=== PATIENT | female | born 1965 | race Caucasian/White ===

== ENCOUNTER 2018-05-14 13:13 | Inpatient (IN) | payer OTHER ==
[~2018-05-14] VITALS: Ht 177.8 cm; Wt 112.9 kg
[2018-05-14 14:10] LABS: ABSOLUTE BASOPHIL COUNT 0 /CUMM (0.0-0.2); ABSOLUTE EOSINOPHIL COUNT 0 /CUMM (0.0-0.7); ABSOLUTE GRANULOCYTE CT 28.4 /CUMM (1.4-6.5); ABSOLUTE LYMPH COUNT 0.6 /CUMM (1.2-3.4); ABSOLUTE MONOCYTE COUNT 0.2 /CUMM (0.10-0.60); BASOPHIL % 0 % (0.0-2.0); EOSINOPHIL % 0 % (0-5); GRANULOCYTE % 97.4 % (42.2-75.2); HEMATOCRIT 35.6 % (37-47); MEAN CORPUSCULAR HGB 24.2 PG (27.0-31.0); MEAN CORPUSCULAR HGB CONC 32.4 G/DL (33.0-37.0); MEAN CORPUSCULAR VOLUME 74.8 FL (81.0-99.0); PLATELET COUNT 508 /CUMM (130-400); RBC DISTRIBUTION WIDTH 16.2 % (11.5-14.5); RED BLOOD CELL CT 4.76 /CUMM (4.20-5.40)
[2018-05-14 14:15] LABS: WHITE BLOOD CELL COUNT 29.2 /CUMM (4.8-10.8)
--- NOTE | 2018-05-14 14:50 | ULTRASOUND REPORT ---
EXAMINATION: US ABDOMEN LIMITED CLINICAL INFORMATION: Right upper quadrant and epigastric pain with nausea and vomiting. COMPARISON: 08/31/2006 TECHNIQUE: Real-time imaging of the right upper quadrant abdominal viscera. FINDINGS: PANCREAS: Very limited evaluation due to overlying bowel gas. Suboptimal visualization. LIVER: The liver is poorly seen due to overlying bowel gas and patient's body habitus. The liver appears slightly enlarged measuring 22 cm. Intrahepatic biliary ducts appear dilated, predominantly centrally but also into the periphery. No focal liver lesions seen. GALLBLADDER: Gallstones were identified. The gallbladder wall was not thickened. The gallbladder is physiologically distended. COMMON BILE DUCT: Dilated measuring 1.3 cm in diameter. RIGHT KIDNEY: Limited visualization. No hydronephrosis. No renal calculi or focal parenchymal lesions. The kidney measures 9.9 cm in maximum dimension. FREE FLUID: None. IMPRESSION: Intrahepatic and extrahepatic biliary dilatation. There are also gallstones present, however the gallbladder is normally distended without inflammatory changes. Although a gallstone was not able to be seen, this does not exclude a distal stone obstructing the biliary system. The patient's body habitus and bowel gas limited visualization. Consider follow-up with MRCP or ERCP as indicated based upon clinical assessment.
--- NOTE | 2018-05-14 15:43 | ED GI/GU/ABDOMINAL COMPLAINT ---
History of Present Illness General Chief Complaint: Nausea, Vomiting, Diarrhea Stated Complaint: NV Source: patient Exam Limitations: no limitations Vital Signs & Intake/Output Vital Signs & Intake/Output ED Intake and Output 05/18 0000 05/17 1200 Intake Total 920 Output Total 350 Balance 570 Intake, IV 800 Intake, Oral 120 Output, Urine 350 Triage Note: BIBA FROM HOME WITH C/O NAUSEA AND ABD PAIN, PT SEEN YESTERDAY FOR THE SAME, "SENT HOME WITH TYLENOL". PT MOANING AND YELLING OUT UPON ARRIVAL. PT MED WITH ZOFRAN IV ENROUTE TO ED FOR C/O NAUSEA. Triage Nurses Notes Reviewed? yes LMP (ages 10-50): unknown ? n Is pt currently ? No Onset: Abrupt Duration: day(s): (3), constant, continues in ED Timing: single episode today Quality/Severity: cramping, stabbing Severity Numbers: 10 Location: right upper quadrant Radiation: no radiation Activities at Onset: none Prior Abdominal Problems: similar symptoms Past Sexual History: Unobtainable at this time Associated Symptoms: abdominal pain, nausea/vomiting HPI: 52-year-old female history of GERD, gallstones, obesity, bronchitis and chronic back pain presents for evaluation of right upper quadrant pain nausea and vomiting. Patient reports she has been having symptoms for the past 2 or 3 days getting worse. The pain is located in the right upper quadrant does not radiate. She describes it as sharp and stabbing. Associated with lots of nausea and vomiting she is not tolerating fluids. Patient was seen in the emergency department overnight and refused to stay for an ultrasound she left to return this morning. She denies any fever chest pain shortness of breath or jaundiced. She has a history of similar symptoms and was supposed to have a cholecystectomy along with intraoperative ERCP and esophageal hernia repair but this has not yet been scheduled. (Keny DELGADO,Jose) Allergies Coded Allergies: metronidazole (From FLAGYL) (Mild, ITCHING 05/16/18) Reconcile Medications Oxycodone HCl 5 MG TABLET 1-2 TAB PO Q4H PRN POSTOP PAIN (Desiree SESAY,Zeyad Oh) Past History Travel History Traveled to [place] past 21 day No Medical History Any Pertinent Medical History? see below for history Respiratory: bronchitis Gastrointestinal: GERD, GALL STONES Musculoskeletal: chronic back pain, osteoarthritis Surgical History Surgical History: non-contributory Psychosocial History What is your primary language Albanian Tobacco Use: Refused to answer Family History Hx Contributory? No (Jose Weston) Review of Systems Review of Systems Constitutional: Reports: no symptoms. EENTM: Reports: no symptoms. Respiratory: Reports: no symptoms. Cardiovascular: Reports: no symptoms. GI: Reports: see HPI, abdominal pain, nausea, vomiting. Genitourinary: Reports: no symptoms. Musculoskeletal: Reports: no symptoms. Skin: Reports: no symptoms. Neurological/Psychological: Reports: no symptoms. Hematologic/Endocrine: Reports: no symptoms. Immunologic/Allergic: Reports: no symptoms. All Other Systems: Reviewed and Negative (Jose Weston) Physical Exam Physical Exam General Appearance: well developed/nourished, alert, awake, moderate distress, obese Head: atraumatic, normal appearance Eyes: Bilateral: normal appearance, PERRL, EOMI. Ears, Nose, Throat, Mouth: moist mucous membrane Neck: normal inspection, supple, full range of motion Respiratory: normal breath sounds, chest non-tender, no respiratory distress, lungs clear Cardiovascular: regular rate/rhythm, normal peripheral pulses Peripheral Pulses: 2+ radial (R), 2+ radial (L) Gastrointestinal: normal bowel sounds, soft, no organomegaly, tenderness (ruq, epigastric ) Back: normal inspection, normal range of motion, no vertebral tenderness Extremities: normal range of motion Neurologic/Psych: no motor/sensory deficits, awake, alert, oriented x 3, normal gait, normal mood/affect Skin: intact, normal color, warm/dry Core Measures ACS in differential dx? No Sepsis Present: No Sepsis Focused Exam Completed? No (Jose Weston) Progress Differential Diagnosis: cholecystitis, gastritis, hepatitis, hernia, kidney stone, pancreatitis, cholangitis cholcystitis choldocholithiasis Plan of Care: Orders Procedure Date/time Status Discharge Patient 05/17 UNK Active Patient is here with severe right upper quadrant pain nausea and vomiting. Symptoms have been getting worse for the past 2 or 3 days. Patient has a history of similar symptoms and is supposed to have a cholecystectomy with intraoperative ERCP but this has not yet been scheduled. She denies any fever. No diarrhea. No chest pain or shortness of breath. Labs were repeated from this morning ultrasound and CT scan ordered. Patient has required multiple doses of IV antiemetics and IV pain meds and is still requiring significant pain Labs show multiple significant abnormalities including elevated alk phos AST ALT T bili 1.8 white blood cell count of 29. Patient was started on Rocephin and Flagyl for empiric treatment of cholangitis. Ultrasound is limited based on body habitus. A CT scan of the abdomen and pelvis was ordered and shows choledocholithiasis with obstruction and ductal dilatation. Spoke with Dr. Dietrich and Dr. Coats who both know this patient and her aware of the situation. Patient will be coming into the hospital for further evaluation and treatment. She will require surgical consult, IV antibiotics, IV fluids, IV antiemetics, IV pain meds, ERCP cholecystectomy. Case discussed with Dr. Ramírez he agrees. Diagnostic Imaging: Viewed by Me: CT Scan. Discussed w/RAD: CT Scan. Radiology Impression: PATIENT: AZ DALTON PRESENT AGE: 52 PATIENT ACCOUNT NO: [id number] : 67 LOCATION: [facility] ORDERING PHYSICIAN: Jose DELGADO SERVICE DATE: 05/14/18 EXAM TYPE: US - US-LIMITED ABDOMEN EXAMINATION: US ABDOMEN LIMITED CLINICAL INFORMATION: Right upper quadrant and epigastric pain with nausea and vomiting. COMPARISON: 2006 TECHNIQUE: Real-time imaging of the right upper quadrant abdominal viscera. FINDINGS: PANCREAS: Very limited evaluation due to overlying bowel gas. Suboptimal visualization. LIVER: The liver is poorly seen due to overlying bowel gas and patient's body habitus. The liver appears slightly enlarged measuring 22 cm. Intrahepatic biliary ducts appear dilated, predominantly centrally but also into the periphery. No focal liver lesions seen. GALLBLADDER: Gallstones were identified. The gallbladder wall was not thickened. The gallbladder is physiologically distended. COMMON BILE DUCT: Dilated measuring 1.3 cm in diameter. RIGHT KIDNEY: Limited visualization. No hydronephrosis. No renal calculi or focal parenchymal lesions. The kidney measures 9.9 cm in maximum dimension. FREE FLUID: None. IMPRESSION: Intrahepatic and extrahepatic biliary dilatation. There are also gallstones present, however the gallbladder is normally distended without inflammatory changes. Although a gallstone was not able to be seen, this does not exclude a distal stone obstructing the biliary system. The patient's body habitus and bowel gas limited visualization. Consider follow-up with MRCP or ERCP as indicated based upon clinical assessment. DICTATED BY: Mai Eagle MD DATE/TIME DICTATED:05/14/181442 [employer] MACHINE OPERATOR :NICOLE DATE/TIME TRANSCRIBED:05/14/181442 CONFIDENTIAL, DO NOT COPY WITHOUT APPROPRIATE AUTHORIZATION. <Electronically signed in Other Vendor System> SIGNED BY: Mai Eagle MD 05/14/18 1450, PATIENT: AZ DALTON PRESENT AGE: 52 PATIENT ACCOUNT NO: [id number] : LOCATION: [facility] ORDERING PHYSICIAN: Jose DELGADO SERVICE DATE: EXAM TYPE: CAT - CT ABD & PELVIS W IV CONTRAST EXAMINATION: CT ABDOMEN AND PELVIS WITH CONTRAST CLINICAL INFORMATION: Right upper quadrant pain and vomiting. COMPARISON: Limited ultrasound, 05/14/2018 TECHNIQUE: Multidetector volumetric imaging was performed of the abdomen and pelvis following IV administration of 95 mL of Optiray 320 intravenous contrast. Sagittal and coronal reformatted images were obtained on the technologist's workstation. DLP: 1190 mGy-cm FINDINGS: LUNG BASES: Mild patchy ground glass opacity in the middle lobe and right lower lobe. Mild subsegmental atelectasis in right lower lobe and inferior lingula, as well. No pleural effusion. LIVER, GALLBLADDER, AND BILIARY TREE: Liver has normal contour. The right hepatic lobe is 22.2 cm in length. The intrahepatic bile ducts are dilated. Common bile duct measures up to 1.4 cm AP diameter. There are at least three and probably four calculi within the distal CBD, largest measuring up to 1 cm. Gallbladder, which is moderately distended, measures 4.6 cm transverse diameter. Cholelithiasis is noted but there is no gallbladder wall edema or pericholecystic fluid. PANCREAS: Diffuse atrophy of the pancreas. No pancreatic ductal dilatation or peripancreatic edema. SPLEEN: Prominent spleen is 14.3 cm in craniocaudal dimension. No focal splenic lesion. ADRENAL GLANDS: Unremarkable. KIDNEYS AND URETERS: The kidneys have normal size, shape, and attenuation. No hydroureteronephrosis, urolithiasis or perinephric stranding. BLADDER: Unremarkable. BOWEL AND PERITONEUM: Status post Thao-en-Y gastric bypass surgery with apparent small hiatal hernia and fluid distention of the visualized distal esophagus. Small and large bowel are normal in caliber. Intact jejunojejunal anastomosis. No evidence of small or large bowel obstruction. No ascites or pneumoperitoneum. ABDOMINAL WALL: Unremarkable. LYMPH NODES: Largest lymph node in the periportal region is 1.5 cm in short axis dimension. The multiple retroperitoneal lymph nodes are in the normal size range. No mesenteric, iliac or inguinal lymphadenopathy. VASCULAR: Abdominal aorta is normal in caliber. PELVIC: Uterus and adnexa are unremarkable. No pelvic mass or free fluid. Multiple phleboliths are seen in the lower pelvis. MUSCULOSKELETAL: Multilevel degenerative disc disease and facet arthropathy of the lumbar spine. No suspicious bone lesions. IMPRESSION: - Cholelithiasis and choledocholithiasis with biliary tract obstruction. Common bile duct is dilated up to 1.4 cm diameter and the intrahepatic ducts are dilated, as well. No evidence of cholecystitis. - Status post Thao-en-Y gastric bypass surgery. There appears to be a small hiatal hernia as well as fluid distention of the esophagus , possibly from gastroesophageal reflux or esophageal dysmotility. At some point , after addressing the patient's acute biliary tract pathology, follow-up esophagram/upper GI series may be needed. - Hepatosplenomegaly and nonspecific lymphadenopathy in the periportal region. - Patchy, hazy opacities in the right middle lobe and right lower lobe are suspicious for mild pneumonitis. DICTATED BY: Bridger Jefferson MD DATE/TIME DICTATED:05/14/181608 [employer] MACHINE OPERATOR: NICOLE DATE/TIME TRANSCRIBED:05/14/181608 CONFIDENTIAL, DO NOT COPY WITHOUT APPROPRIATE AUTHORIZATION. <Electronically signed in Other Vendor System> SIGNED BY: Bridger Jefferson MD 05/14/18 6804 Initial ED EKG: normal sinus rhythm, no ST T wave changes (Jose Weston) Departure Departure Disposition: STILL A PATIENT Condition: Stable Clinical Impression Primary Impression: Choledocholithiasis Referrals: Marlon SESAY,Michael Navarro (PCP/Family) Departure Forms: Customer Survey General Discharge Information Admission Note Spoke With: Augie Howard DO Documentation of Exam: Documentation of any treatments & extenuating circumstances including Concerns Regarding Discharge (functional status, medication knowledge or non-compliance, living conditions, etc.) that warrant an admission rather than observation: [IV antibiotics, IV fluids, IV pain meds, IV antiemetics, cholecystectomy, intraoperative ERCP, surgical consult, monitoring of vital signs] (Jose Weston) Departure Prescriptions: Current Visit Scripts Oxycodone HCl 1-2 TAB PO Q4H PRN POSTOP PAIN #20 TAB PA/REPAIRER GENERAL Co-Sign Statement Statement: ED Attending supervision documentation- [X] I saw and evaluated the patient. I have also reviewed all the pertinent lab results and diagnostic results. I agree with the findings and the plan of care as documented in the PA's/REPAIRER GENERAL's documentation. [] I have reviewed the ED Record and agree with the PA's/REPAIRER GENERAL's documentation. [] Additions or exceptions (if any) to the PAs/REPAIRER GENERAL's note and plan are summarized below: [] (Desiree SESAY,Zeyad hO) WITHOUT APPROPRIATE AUTHORIZATION. <Electronically signed in Other Vendor System> SIGNED BY: Bridger Jefferson MD 05/14/18 1146 Initial ED EKG: normal sinus rhythm, no ST T wave changes Departure Departure Disposition: STILL A PATIENT Condition: Stable Clinical Impression Primary Impression: Choledocholithiasis Referrals: Marlon SESAY,Michael Navarro (PCP/Family) Departure Forms: Customer Survey General Discharge Information Admission Note Spoke With: Augie Howard DO Documentation of Exam: Documentation of any treatments & extenuating circumstances including Concerns Regarding Discharge (functional status, medication knowledge or non-compliance, living conditions, etc.) that warrant an admission rather than observation: [IV antibiotics, IV fluids, IV pain meds, IV antiemetics, cholecystectomy, intraoperative ERCP, surgical consult, monitoring of vital signs]
--- NOTE | 2018-05-14 16:34 | CT SCAN REPORT ---
EXAMINATION: CT ABDOMEN AND PELVIS WITH CONTRAST CLINICAL INFORMATION: Right upper quadrant pain and vomiting. COMPARISON: Limited ultrasound, 05/14/2018 TECHNIQUE: Multidetector volumetric imaging was performed of the abdomen and pelvis following IV administration of 95 mL of Optiray 320 intravenous contrast. Sagittal and coronal reformatted images were obtained on the technologist's workstation. DLP: 1190 mGy-cm FINDINGS: LUNG BASES: Mild patchy ground glass opacity in the middle lobe and right lower lobe. Mild subsegmental atelectasis in right lower lobe and inferior lingula, as well. No pleural effusion. LIVER, GALLBLADDER, AND BILIARY TREE: Liver has normal contour. The right hepatic lobe is 22.2 cm in length. The intrahepatic bile ducts are dilated. Common bile duct measures up to 1.4 cm AP diameter. There are at least three and probably four calculi within the distal CBD, largest measuring up to 1 cm. Gallbladder, which is moderately distended, measures 4.6 cm transverse diameter. Cholelithiasis is noted but there is no gallbladder wall edema or pericholecystic fluid. PANCREAS: Diffuse atrophy of the pancreas. No pancreatic ductal dilatation or peripancreatic edema. SPLEEN: Prominent spleen is 14.3 cm in craniocaudal dimension. No focal splenic lesion. ADRENAL GLANDS: Unremarkable. KIDNEYS AND URETERS: The kidneys have normal size, shape, and attenuation. No hydroureteronephrosis, urolithiasis or perinephric stranding. BLADDER: Unremarkable. BOWEL AND PERITONEUM: Status post Thao-en-Y gastric bypass surgery with apparent small hiatal hernia and fluid distention of the visualized distal esophagus. Small and large bowel are normal in caliber. Intact jejunojejunal anastomosis. No evidence of small or large bowel obstruction. No ascites or pneumoperitoneum. ABDOMINAL WALL: Unremarkable. LYMPH NODES: Largest lymph node in the periportal region is 1.5 cm in short axis dimension. The multiple retroperitoneal lymph nodes are in the normal size range. No mesenteric, iliac or inguinal lymphadenopathy. VASCULAR: Abdominal aorta is normal in caliber. PELVIC: Uterus and adnexa are unremarkable. No pelvic mass or free fluid. Multiple phleboliths are seen in the lower pelvis. MUSCULOSKELETAL: Multilevel degenerative disc disease and facet arthropathy of the lumbar spine. No suspicious bone lesions. IMPRESSION: - Cholelithiasis and choledocholithiasis with biliary tract obstruction. Common bile duct is dilated up to 1.4 cm diameter and the intrahepatic ducts are dilated, as well. No evidence of cholecystitis. - Status post Thao-en-Y gastric bypass surgery. There appears to be a small hiatal hernia as well as fluid distention of the esophagus, possibly from gastroesophageal reflux or esophageal dysmotility. At some point, after addressing the patient's acute biliary tract pathology, follow-up esophagram/upper GI series may be needed. - Hepatosplenomegaly and nonspecific lymphadenopathy in the periportal region. - Patchy, hazy opacities in the right middle lobe and right lower lobe are suspicious for mild pneumonitis.
--- NOTE | 2018-05-14 17:30 | History & Physical Pre-Op ---
Dulce Maria Bernal 05/14/18 1980: General Information and HPI MD Statement: I have seen and personally examined AZ DALTON and documented this H&P. The patient is a 52 year old F who presented with a patient stated chief complaint of epigastric and right upper quadrant abdominal pain.[]. Source of Information: patient, family Exam Limitations: no limitations History of Present Illness: This is a 52-year-old female, 18 years status post gastric bypass. She started to develop vague nonspecific abdominal pain over the last year. 2 weeks ago the pain became unbearable. She complained of midepigastric pain and right upper quadrant tenderness that is bandlike. Over the last month she has had difficulty eating and has been vomiting on a regular basis. As a result she has had a 30 pound unintentional weight loss. She presented to the emergency room because her pain and weakness was unbearable. She has been under the care of Dr. Howard and Dr. Meneses. She recently had a colonoscopy and upper endoscopy that revealed severe ulcerations of her esophagus with severe reflux. They also noted problems with her gastric bypass. She was scheduled to have revision surgery by Dr. Howard however during her preoperative clearance her LFTs and alk phos were elevated. She was seen by Dr. Meneses for ultrasound and MRCP that showed cholelithiasis and was scheduled to have an ERCP. Dr. Howard and Dr. Meneses had planned to do a combination procedure in the near future however her symptoms have significantly worsened over the last couple days. She is admitted to [facility] for IV antibiotics, bowel rest, pain management and surgical planning. She denies any fevers or chills however she states she has had multiple bouts of vomiting with some intermittent diarrhea. She has difficulty eating anything at this time. Allergies/Medications Allergies: Coded Allergies: NO KNOWN ALLERGIES (05/14/18) Past History Medical History Respiratory: bronchitis Gastrointestinal: NONE (gastric bypass), GERD, GALL STONES Musculoskeletal: chronic back pain, osteoarthritis Surgical History Pertinent Surgical History: non-contributory Past Family/Social History Psychosocial History Smoking Status: Never Smoked ETOH Use: denies use Illicit Drug Use: denies illicit drug use Functional Ability ADLs Independent: dressing, eating, toileting, bathing. Ambulation: independent Review of Systems Review of Systems Constitutional: Reports: weakness. Denies: chills, diaphoresis, fever. EENTM: Denies: no symptoms. Cardiovascular: Denies: chest pain, edema, palpitations. Respiratory: Reports: cough. Denies: short of breath, wheezing. GI: Reports: abdominal pain, bloating, diarrhea, distention, nausea, vomiting. Denies: constipation. Musculoskeletal: Reports: back pain, joint swelling, muscle pain. Skin: Denies: no symptoms. Neurological/Psychological: Denies: no symptoms. Hematologic/Endocrine: Denies: no symptoms. Exam & Diagnostic Data Last 24 Hrs of Vital Signs/I&O Vital Signs Date Time Temp Pulse Resp B/P B/P Pulse O2 O2 Flow FiO2 Mean Ox Delivery Rate 05/14 1716 98.0 100 18 128/71 100 Room Air 05/14 1440 97.0 80 137/64 05/14 1439 98.0 05/14 1350 98.0 05/14 1324 97 Room Air Room Air 05/14 1315 98.0 90 144/90 Intake & Output 05/14 1600 05/14 0800 05/14 0000 Intake Total 150 Output Total Balance 150 Intake, IV 150 Physical Exam: Patient is alert and oriented lying on the stretcher with family present HEENT is within normal limits Neck is supple nontender with active range of motion Chest is clear to auscultation symmetric without rales rhonchi or wheeze Heart is regular rate and rhythm without murmurs rubs or gallops Abdomen is obese with mild distention there is pain with palpation in the right upper quadrant and guarding positive Moses sign noted Prior healed surgical scars Umbilical hernia repair she had removal of her umbilicus Abdominoplasty scar Bilateral lower extremities no edema calves are soft distal pulses intact with good perfusion Last 24 Hrs of Labs/Yomi: Laboratory Tests 05/14/18 1702: Total Bilirubin Cancelled, Direct Bilirubin Cancelled, AST Cancelled, ALT Cancelled, Alkaline Phosphatase Cancelled, Total Protein Cancelled, Albumin Cancelled 05/14/18 1659: Total Bilirubin Cancelled, Direct Bilirubin Cancelled, AST Cancelled, ALT Cancelled, Alkaline Phosphatase Cancelled, Total Protein Cancelled, Albumin Cancelled 05/14/18 1355: Anion Gap 15, Estimated GFR > 60, BUN/Creatinine Ratio 21.4, Glucose 117 H, Calcium 9.6, Total Bilirubin 1.8 H, Direct Bilirubin 1.1 H, AST 170 H, ALT 69 H, Alkaline Phosphatase 607 H, Troponin I < 0.01, C-Reactive Prot, Quant 0.6, Total Protein 7.6, Albumin 3.9, Globulin 3.7, Albumin/Globulin Ratio 1.1, Lipase 121, CBC w Diff MAN DIFF ORDERED, RBC 4.76, MCV 74.8 L, MCH 24.2 L, MCHC 32.4 L, RDW 16.2 H, MPV 8.0, Gran % 97.4 H, Lymphocytes % 1.9 L, Monocytes % 0.7 L, Eosinophils % 0, Basophils % 0, Absolute Granulocytes 28.4 H, Segmented Neutrophils 86 H, Band Neutrophils 10 H, Absolute Lymphocytes 0.6 L, Lymphocytes 2 L, Monocytes 2, Absolute Monocytes 0.2, Absolute Eosinophils 0, Absolute Basophils 0, Platelet Estimate VERIFIED BY SMEAR, Hypochromic- Microcytic 1+, Anisocytosis 1+, Microcytic Cells 1+ Diagnostic Data CXR Results NSR Other Results CT Cholelithiasis and choledocholithiasis with biliary tract obstruction. Common bile duct is dilated up to 1.4 cm diameter and the intrahepatic ducts are dilated, as well. No evidence of cholecystitis. - Status post Thao-en-Y gastric bypass surgery. There appears to be a small hiatal hernia as well as fluid distention of the esophagus, possibly from gastroesophageal reflux or esophageal dysmotility. At some point, after addressing the patient's acute biliary tract pathology, follow-up esophagram/upper GI series may be needed. - Hepatosplenomegaly and nonspecific lymphadenopathy in the periportal region. - Patchy, hazy opacities in the right middle lobe and right lower lobe are suspicious for mild pneumonitis. US ntrahepatic and extrahepatic biliary dilatation. There are also gallstones present, however the gallbladder is normally distended without inflammatory changes. Although a gallstone was not able to be seen, this does not exclude a distal stone obstructing the biliary system. The patient's body habitus and bowel gas limited visualization. Consider follow-up with MRCP or ERCP as indicated based upon clinical assessment. Assessment/Plan Assessment/Plan: 52-year-old female status post gastric bypass with cholelithiasis, choledocholithiasis, hiatal hernia, reflux and dysmotility Admit -IVF, rocephin flagyl NPO, pain nausea control DVT prophalaxis HSQ protonix -reflux and dysmotility planned procedure (Dr. Howard and Zaira Zapata on Tuesday) Augie Howard DO 05/15/18 0841: Assessment/Plan As Ranked By This Provider Problem List: 1. Choledocholithiasis 2. Cholelithiasis 3. Nausea and vomiting Attending MD Review Statement Attending Statement Attending MD Statement: examined this patient, discuss w/resident/PA/PATTERN CLERK, agreed w/resident/PA/PATTERN CLERK, reviewed EMR data (avail), reviewed images Attending Assessment/Plan: Patient seen and examined, agree with above. Acute onset of upper/right upper quadrant pain, radiating to the back. Known choledocholithiasis. Has been getting worked up to undergo elective procedure. H/O open gastric bypass. Also has a known paraesophageal hernia. AVSS UO ok. Abd-obese, soft. Labs today pending. D/W patient and GI and will plan on a Lap assisted ERCP and Lap Medina tomorrow. Paraesophageal hernia repair will put off for now due to the acuity of the current pathology. Patient understands everything and wishes to proceed.
[2018-05-14 19:59] VITALS: BP 128/72
[2018-05-15 06:39] VITALS: BP 122/84
--- NOTE | 2018-05-15 07:06 | PN- Bariatrics ---
Subjective Subjective: Outpatient work up was in progress with and , but ended up coming to ED due to uncontrolled pain. No reported chills / sweats overnight. Denies shortness of breath. No chest pains. Currently npo. No fevers reported overnight. Objective Vital Signs and I&Os Vital Signs Date Time Temp Pulse Resp B/P B/P Pulse O2 O2 Flow FiO2 Mean Ox Delivery Rate 05/15 0639 98.1 85 20 122/84 98 Room Air 05/14 1959 98.3 97 18 128/72 99 Room Air 05/14 1852 98.4 98 18 130/73 99 Room Air 05/14 1716 98.0 100 18 128/71 100 Room Air 05/14 1440 97.0 80 137/64 05/14 1439 98.0 05/14 1350 98.0 05/14 1324 97 Room Air Room Air 05/14 1315 98.0 90 144/90 Intake & Output 05/15 0800 05/15 0000 05/14 1600 05/14 0800 05/14 0000 05/13 1600 Intake Total 0 150 Output Total Balance 0 150 Intake, IV 150 Intake, Oral 0 Patient 243 lb Weight Physical Exam: General - alert & oriented x 3. comfortable. no acute distress. Lungs - clear bilaterally. no w/r/r. Cardiac - s1s2. reg. Abdomen - soft. right upper quadrant tenderness. not diffusely tender. midline scar appreciated. Extremities - warm bilaterally. no c/c/e. calves soft and nontender b/l. Current Medications: Current Medications Sig/Odilon Start time Last Medication Dose Route Stop Time Status Admin Acetaminophen 1,000 MG ONCE ONE 05/14 1345 DC 05/14 N/A 1 UNIT IV 05/14 1359 1350 Acetaminophen 0 .STK-MED ONE 05/14 1345 DC IV Ceftriaxone Sodium 2,000 MG DAILY 05/15 0900 AC IV Ceftriaxone Sodium 1,000 MG ONCE ONE 05/14 1730 DC IV 05/14 1731 Ceftriaxone Sodium 1,000 MG ONCE ONE 05/14 1615 DC 05/14 IV 05/14 1616 1612 Ceftriaxone Sodium 0 .STK-MED ONE 05/14 1607 DC .ROUTE Ciprofloxacin 400 MG Q12 05/14 2100 CAN Dextrose/Water 200 ML IV Dextrose/Sodium 1,000 ML Q10H 05/14 1700 AC 05/15 Chloride IV 0552 Heparin Sodium 0 .STK-MED ONE 05/14 1712 DC (Porcine) .ROUTE Heparin Sodium 5,000 UNIT Q8 05/14 1658 AC 05/15 (Porcine) SC 0557 Hydromorphone HCl 0 .STK-MED ONE 05/14 1927 DC .ROUTE Hydromorphone HCl 0.4 MG Q4P PRN 05/14 1700 AC IV Hydromorphone HCl 0.8 MG Q4P PRN 05/14 1700 AC 05/15 IV 0320 Hydromorphone HCl 0 .STK-MED ONE 05/14 1648 DC .ROUTE Hydromorphone HCl 1 MG ONCE ONE 05/14 1645 DC 05/14 IV 05/14 1646 1653 Hydromorphone HCl 0 .STK-MED ONE 05/14 1546 DC .ROUTE Hydromorphone HCl 1 MG ONCE ONE 05/14 1545 DC 05/14 IV 05/14 1546 1549 Influenza Virus 0.5 ML ONCE ONE 05/14 2030 DC 05/14 Vaccine IM 05/14 2031 2120 Ketorolac 0 .STK-MED ONE 05/14 2116 DC Tromethamine .ROUTE Ketorolac 30 MG ONCE ONE 05/14 2045 DC 05/14 Tromethamine IV 05/14 2046 2121 Metronidazole 500 MG IQ8 05/15 0000 AC 05/14 N/A 1 UNIT IV 2327 Metronidazole 500 MG ONCE ONE 05/14 1600 DC 05/14 N/A 1 UNIT IV 05/14 1659 1612 Morphine Sulfate 0 .STK-MED ONE 05/14 1506 DC .ROUTE Morphine Sulfate 4 MG ONCE ONE 05/14 1500 DC 05/14 IV 05/14 1501 1508 Ondansetron HCl 4 MG Q6P PRN 05/14 1715 AC 05/15 IV 0324 Pantoprazole Sodium 0 .STK-MED ONE 05/14 1713 DC IV Pantoprazole Sodium 40 MG DAILY 05/14 1658 AC 05/14 IV 1738 Promethazine HCl 25 MG ONCE ONE 05/14 1345 DC 05/14 IV 05/14 1346 1350 Promethazine HCl 0 .STK-MED ONE 05/14 1345 DC .ROUTE Sodium Chloride 1,000 ML BOLUS ONE 05/14 1615 DC 05/14 IV 09/16 1714 1612 Results Last 48 Hours of Labs: Laboratory Tests 05/14 05/14 1702 1659 Chemistry Total Bilirubin Cancelled Cancelled Direct Bilirubin Cancelled Cancelled AST Cancelled Cancelled ALT Cancelled Cancelled Alkaline Phosphatase Cancelled Cancelled Total Protein Cancelled Cancelled Albumin Cancelled Cancelled 05/14 1355 Chemistry Sodium (137 - 145 mmol/L) 142 Potassium (3.5 - 5.1 mmol/L) 3.6 Chloride (98 - 107 mmol/L) 104 Carbon Dioxide (22 - 30 mmol/L) 24 Anion Gap (5 - 16) 15 BUN (7 - 17 mg/dL) 15 Creatinine (0.5 - 1.0 mg/dL) 0.7 Estimated GFR (>60 ml/min) > 60 BUN/Creatinine Ratio (7 - 25 %) 21.4 Glucose (65 - 99 mg/dL) 117 H Calcium (8.4 - 10.2 mg/dL) 9.6 Total Bilirubin (0.2 - 1.3 mg/dL) 1.8 H Direct Bilirubin (< 0.4 mg/dL) 1.1 H AST (14 - 36 U/L) 170 H ALT (9 - 52 U/L) 69 H Alkaline Phosphatase (<127 U/L) 607 H Troponin I (< 0.11 ng/ml) < 0.01 C-Reactive Prot, Quant (<1.0 mg/dL) 0.6 Total Protein (6.3 - 8.2 g/dL) 7.6 Albumin (3.5 - 5.0 g/dL) 3.9 Globulin (1.9 - 4.2 gm/dL) 3.7 Albumin/Globulin Ratio (1.1 - 2.2 %) 1.1 Lipase (23 - 300 U/L) 121 Hematology CBC w Diff MAN DIFF ORDERED WBC (4.8 - 10.8 /CUMM) 29.2 H RBC (4.20 - 5.40 /CUMM) 4.76 Hgb (12.0 - 16.0 G/DL) 11.5 L Hct (37 - 47 %) 35.6 L MCV (81.0 - 99.0 FL) 74.8 L MCH (27.0 - 31.0 PG) 24.2 L MCHC (33.0 - 37.0 G/DL) 32.4 L RDW (11.5 - 14.5 %) 16.2 H Plt Count (130 - 400 /CUMM) 508 H MPV (7.4 - 10.4 FL) 8.0 Gran % (42.2 - 75.2 %) 97.4 H Lymphocytes % (20.5 - 51.1 %) 1.9 L Monocytes % (1.7 - 9.3 %) 0.7 L Eosinophils % (0 - 5 %) 0 Basophils % (0.0 - 2.0 %) 0 Absolute Granulocytes (1.4 - 6.5 /CUMM) 28.4 H Segmented Neutrophils (42.2 - 75.2 %) 86 H Band Neutrophils (0.0 - 5.0 %) 10 H Absolute Lymphocytes (1.2 - 3.4 /CUMM) 0.6 L Lymphocytes (20.5 - 51.1 %) 2 L Monocytes (1.7 - 9.3 %) 2 Absolute Monocytes (0.10 - 0.60 /CUMM) 0.2 Absolute Eosinophils (0.0 - 0.7 /CUMM) 0 Absolute Basophils (0.0 - 0.2 /CUMM) 0 Platelet Estimate (ADEQUATE) VERIFIED BY SMEAR Hypochromic-Microcytic 1+ Anisocytosis 1+ Microcytic Cells 1+ Assessment/Plan Assessment/Plan This 52 year old female with history of morbid obesity s/p gastric bypass, known cholelithiasis, hiatal hernia and associated gerd, admitted due to pain likely secondary to choledocholithiasis currently npo / ivf continue rocephin / flagyl pain control as needed f/u labs, including INR requested by hep sc - dvt ppx protonix - gi ppx will need ercp coordinated with OR to access remnant stomach (s/p gastric bypass ) already known to patient, with outpatient work up in progress will d/w Core Measures Venous Thromboembolism VTE Risk Factors Obesity No Mechanical VTE Prophylaxis d/t N/A MechProphylax Ordered No VTE Pharm Prophylaxis d/t NA PharmProphylax ordered
[2018-05-15 09:04] LABS: ABSOLUTE BASOPHIL COUNT 0 /CUMM (0.0-0.2); BASOPHIL % 0 % (0.0-2.0)
[2018-05-15 09:10] LABS: PT 15.4 SEC (9.4-12.5)
[2018-05-15 09:11] LABS: ABSOLUTE EOSINOPHIL COUNT 0 /CUMM (0.0-0.7); ABSOLUTE GRANULOCYTE CT 21.3 /CUMM (1.4-6.5); ABSOLUTE LYMPH COUNT 0.6 /CUMM (1.2-3.4); ABSOLUTE MONOCYTE COUNT 0.5 /CUMM (0.10-0.60); EOSINOPHIL % 0.1 % (0-5); GRANULOCYTE % 95.3 % (42.2-75.2); MEAN CORPUSCULAR HGB 24.3 PG (27.0-31.0); MEAN CORPUSCULAR HGB CONC 32.7 G/DL (33.0-37.0); MEAN CORPUSCULAR VOLUME 74.4 FL (81.0-99.0); PLATELET COUNT 425 /CUMM (130-400); RBC DISTRIBUTION WIDTH 16.5 % (11.5-14.5); RED BLOOD CELL CT 4.07 /CUMM (4.20-5.40)
[2018-05-15 09:15] LABS: HEMATOCRIT 30.3 % (37-47); WHITE BLOOD CELL COUNT 22.4 /CUMM (4.8-10.8)
[2018-05-15 14:14] VITALS: BP 100/60
[2018-05-15 22:18] VITALS: BP 136/82
[2018-05-16 09:43] LABS: ABSOLUTE BASOPHIL COUNT 0 /CUMM (0.0-0.2); ABSOLUTE EOSINOPHIL COUNT 0.1 /CUMM (0.0-0.7); BASOPHIL % 0.1 % (0.0-2.0); MEAN PLATELET VOLUME 8.9 FL (7.4-10.4)
[2018-05-16 09:48] LABS: ABSOLUTE LYMPH COUNT 0.7 /CUMM (1.2-3.4); ABSOLUTE MONOCYTE COUNT 0.4 /CUMM (0.10-0.60); EOSINOPHIL % 0.9 % (0-5); GRANULOCYTE % 85.1 % (42.2-75.2); MEAN CORPUSCULAR HGB 24.4 PG (27.0-31.0); MEAN CORPUSCULAR HGB CONC 33.2 G/DL (33.0-37.0); MEAN CORPUSCULAR VOLUME 73.5 FL (81.0-99.0); PLATELET COUNT 404 /CUMM (130-400); RED BLOOD CELL CT 3.82 /CUMM (4.20-5.40)
[2018-05-16 09:49] LABS: PT 13.8 SEC (9.4-12.5)
--- NOTE | 2018-05-16 09:54 | PN- General Surgery ---
See Addendum Subjective Subjective: Pt with itching with each administration of flagyll, relieved with benadryl. Last dose of flagyll/benadryl at midnight, no further itching. No worseing of abdominal pain. No worsening of fevers, flu like illness. Objective Vital Signs and I&Os Vital Signs Date Time Temp Pulse Resp B/P B/P Pulse O2 O2 Flow FiO2 Mean Ox Delivery Rate 05/15 2218 99.1 77 20 136/82 97 Room Air 05/15 1414 98.2 77 20 100/60 100 Room Air Intake & Output 05/16 1600 05/16 0800 05/16 0000 05/15 1600 05/15 0800 05/15 0000 Intake Total 650 800 0 Output Total Balance 650 800 0 Intake, IV 410 800 Intake, Oral 240 0 0 Number 0 Bowel Movements Patient 249 lb 243 lb Weight Physical Exam: General: Alert and oriented x3, no acute distress Skin: Jaundince, no evidence of puritis\ HEENT: Sclera anicteric bilaterally Cards: RRR, s1s2 Pulm: CTA Abd: Some tenderness to RUQ on exam Extremties: Moves all extremities, distal sensaiton intact, bilateral calves soft and nontender Assessment/Plan Assessment/Plan This is a 52 year old female, hx of brody en y gastric bypass, here with cholecystitis/lithiasis -Continue NPO -Continue rocephin, hold 8 am dose of flagyl due to itching, -Continue to monitor itching in event r/t jaundice -Plan for OR today with Anita for Lap Medina and Karlo for ERCP intra-op Discussed with Dr. Howard Core Measures Venous Thromboembolism VTE Risk Factors Obesity No Mechanical VTE Prophylaxis d/t N/A MechProphylax Ordered No VTE Pharm Prophylaxis d/t NA PharmProphylax ordered
[2018-05-16 10:06] LABS: WHITE BLOOD CELL COUNT 8.2 /CUMM (4.8-10.8)
--- NOTE | 2018-05-16 15:58 | Proc Note ERCP ---
ERCP Procedure Procedure Date: 05/16/18 GI Procedure(s): ERCP with sphincterotomy/stone debarker operator: Farshad Dietrich M.D. ASA Classification: III Indications: Choledocholithiasis/cholangitis Instrument: duodenoscope Meds Received: intraoperative/general anesthesia Patient's Tolerance: good Complications: none Procedure: The patient had signed informed consent for ERCP, having been explained the risks and benefits, and possible complications. The ERCP was done intraoperatively, following induction of anesthesia, and laparoscopic gastrotomy /placement of port (into gastric remnant), by Dr. Howard (see his separate dictation). Pulse oximetry, blood pressure and cardiac monitoring were performed continuously throughout the procedure. The patient had been given indomethacin 100 mg per rectum, prior to surgery. The Olympus V duodenoscope was placed through the port, through the gastrotomy, and into the gastric remnant. Pursestring sutures were placed by Dr. Howard. The duodenoscope was advanced into the duodenum. The papilla was bulging. The Dreamtome/guidewire was initially placed into the pancreatic duct. A partial pancreatogram was normal. The common bile duct was then accessed. The cholangiogram demonstrated dilatation of the common bile duct, common hepatic duct, and main hepatic ducts. The intrahepatic ducts were normal. The cystic duct was not opacified. There were numerous filling defects in the CBD/CHD. A large/complete, bloodless sphincterotomy was performed. 3 stones were extracted with the bowed papillotome, and 2 further stones with a fully inflated 15 mm extraction balloon. A final balloon sweep was negative, and a cholangiogram did not reveal further defects from the bifurcation to papilla. The duodenoscope was then removed. Dr. Howard then proceeded with closure of the gastrotomy, and cholecystectomy. Impression: * Choledocholithiasis, treated with sphincterotomy and stone extraction Recommendations: * Follow-up CBC and LFTs in the morning * Diet and antibiotic therapy as per surgery CC: Lisbeth Howard DO, MD,Skip; Marlon SESAY,Michael Navarro
--- NOTE | 2018-05-16 16:31 | Operative Report ---
Operative/Inv Procedure Report Surgery Date: 05/16/18 Name of Procedure: Laparoscopic utility gastrotomy for ERCP, Laparoscopic lysis of adhesion for ~45 -60 minutes, Laparoscopic cholecystectomy Pre-Operative Diagnosis: Choledocholithiasis, s/p LRYGB Post-Operative Diagnosis: Same Estimated Blood Loss: 50ml to 100ml Surgeon/Strip Cleaner: Augie Howard DO ERCP done by Dr Dietrich Anesthesia: general endotracheal tube IV Fluids: 1100 cc Drains: None Specimens: Gallbladder Complications: None Condition: Stable Operative Indication: This is a 52-year-old female who was seen by me electively for a paraesophageal hernia status post open gastric bypass. Patient was in the workup for repair and was found to have elevated liver function tests and subsequently found to have choledocholithiasis. Patient was then sent to gastroenterology for an evaluation for a laparoscopic-assisted ERCP at the time of the procedure. However patient got acute onset of upper abdominal pain and had to be admitted to the hospital through the emergency room. She was once again found to have elevated liver function tests with a dilated common bile duct and choledocholithiasis on the CT scan. I discussed with the patient that since her acute problem is that the gallstones we should take care of that prior to repairing the paraesophageal hernia. A laparoscopic cholecystectomy and a laparoscopic assisted ERCP by gastroenterology were discussed in detail. All risks including but not limited to bleeding, infection, bile leak, leak from the utility gastrotomy, and injury to surrounding duct/bowel were discussed in detail. All the risks of the ERCP were discussed with the patient by Dr. Dietrich. The patient understood everything and decided to proceed. Operative/Procedure Note Note: The patient was brought to the operating room and placed on the table in supine position. Venodyne stockings were placed in adequate general endotracheal anesthesia was obtained. The patient was prepped and draped in standard surgical fashion. Began the procedure by making a 2 cm midline incision below patient's prior open gastric bypass scar. The incision was carried through subcutaneous tissue to the fascia, and once the fascia was clearly visualized it was picked up between 2 riley clamps and divided in the midline. Once the peritoneum was entered 2 x 0 Vicryl sutures were placed on each side and a 12 mm blunt port was inserted. The abdominal cavity was insufflated to 15 mmHg and upon initial examination we did note some adhesions along the anterior abdominal wall from patient's prior surgery. 5 mm ports were placed in the right upper quadrant along the anterior axillary line approximately 2 cm below the costal margin and then using a harmonic scalpel and EndoShears the adhesions were taken down. 5 mm ports were then placed in the right upper quadrant along the midclavicular line and a 5 mm right lateral port. Another 5 mm port was placed in the left upper quadrant and a 5 mm left lateral port. At that point extensive lysis of adhesions was performed freeing up the whole anterior abdominal wall and running the small bowel to identify all the limbs of the gastric bypass. The total amount of time for lysis of adhesions was approximately 45-60 minutes. It was noted that the patient had an antecolic gastric bypass. We then proceeded to identify the gastric remnant which was mobilized to allow for an adequate gastrotomy. A gastrotomy was then made along the greater curvature of the antrum of the gastric remnant after placing a 2-0 Vicryl pursestring suture. The left upper quadrant 5 mm port was then upsized to a 15 mm port. Biliopancreatic limb was clamped off using bowel graspers. At that point an ERCP was performed by Dr. Dietrich which is to be dictated in a separate procedure. Once the ERCP was completed and the scope was removed, the gastrotomy was closed using the pursestring suture placed prior and a 2-0 Vicryl running suture in double layer. We examined the gastrotomy and was appropriately closed. At that time we brought our attention to the gallbladder, the fundus was grasped with the lateral most trocar and retracted up over the liver. Adhesions along the gallbladder from the omentum and duodenum were taken down using hook electrocautery. The gallbladder was noted to be markedly distended with a very thick wall. Infundibulum was visualized and retracted exposing the triangle of Calot. Cystic duct and cystic artery were then identified and skeletonized. Cystic duct was then divided between clips four clips to stay and one clip on the gallbladder side. The cystic artery was divided between clips as well with 2 clips to stay and one clip on the gallbladder side as well. We then examined the clips which appeared to be in good position with no bile leak or bleeding. The gallbladder was then dissected off the liver bed using hook electrocautery maintaining hemostasis. A posterior branch of the cystic artery was identified and ligated using endoclips as well. Prior to completely remove the gallbladder off the liver bed we examined the area of dissection and no obvious bile leak or bleeding was noted. The gallbladder was completely detached and a 10 mm Endobag was introduced through the umbilical trocar site. The gallbladder was placed in the bag and removed. The abdomen was then reinsufflated and we once again examined the right upper quadrant no obvious bile leak or bleeding was noted and the clips appeared to be in good position. The right upper quadrant was then irrigated until clear. The rest of the abdominal cavity was examined and no bleeding was noted. No injury to the bowel was noted either. At that point all ports removed under direct visualization, no obvious bleeding was noted. 12 mm and the 15 mm port site fascia were closed using 0 Vicryl suture. Skin was closed using 4-0 Monocryl. Steri-Strips and dressings were placed. The patient was successfully extubated and transferred to recovery room in stable condition. The patient tolerated the procedure well no complications. Findings: Multiple adhesions s/p open GBP, antecolic GBP, multiple large stones in CBD extracted with successful sphincterotomy, distended gallbladder with a thick wall and some edema CC: Marlon SESAY,Michael Navarro
[2018-05-16 18:00] VITALS: BP 122/80
--- NOTE | 2018-05-16 19:57 | RADIOLOGY REPORT ---
EXAMINATION: XR BILIARY AND PANCREATIC ERCP CLINICAL INFORMATION: ERCP. COMPARISON: CT abdomen pelvis 05/14/2018 TECHNIQUE: C-arm imaging was used. Fluoroscopy time [address] Farshad Dietrich performed ERCP. Number of images. 11. FINDINGS: Images show cannulation of the common duct. Contrast injected showing multiple filling defects consistent with multiple small common duct stones. Balloon sweeps were performed. IMPRESSION: Status post ERCP for common duct stones.
--- NOTE | 2018-05-16 21:26 | PN- General Surgery ---
Subjective Subjective: Postop check: Patient with moderate to severe abdominal pain, IV Dilaudid is mildly effective. No nausea no vomiting. She is tolerating clears Objective Vital Signs and I&Os Vital Signs Date Time Temp Pulse Resp B/P B/P Pulse O2 O2 Flow FiO2 Mean Ox Delivery Rate 05/16 1800 98.3 71 18 122/80 96 Room Air 05/15 2218 99.1 77 20 136/82 97 Room Air Intake & Output 05/16 1600 05/16 0800 05/16 0000 05/15 1600 05/15 0800 05/15 0000 Intake Total 400 650 800 0 Output Total Balance 400 650 800 0 Intake, IV 400 410 800 Intake, Oral 240 0 0 Number 0 Bowel Movements Patient 249 lb 243 lb Weight Physical Exam: Well-developed well-nourished no apparent distress. HEENT: Atraumatic, extraocular motion intact Neck: Supple, no lymphadenopathy Respiratory: No respiratory distress Abdomen: Obese, moderately distended, dressing sites clean dry and intact, tenderness in the epigastrium. Extremities: No edema, no calf pain Neuro: Alert and oriented x3 Psych: Mood affect normal, normal memory normal judgment. Skin: Warm and dry, no rash on exposed skin Results Last 48 Hours of Labs: Laboratory Tests 05/16 05/15 0648 1506 Chemistry Sodium (137 - 145 mmol/L) 139 Potassium (3.5 - 5.1 mmol/L) 3.9 Chloride (98 - 107 mmol/L) 108 H Carbon Dioxide (22 - 30 mmol/L) 22 Anion Gap (5 - 16) 10 BUN (7 - 17 mg/dL) 10 Creatinine (0.5 - 1.0 mg/dL) 0.6 Estimated GFR (>60 ml/min) > 60 BUN/Creatinine Ratio (7 - 25 %) 16.7 Total Bilirubin (0.2 - 1.3 mg/dL) 1.7 H Direct Bilirubin (< 0.4 mg/dL) 0.8 H AST (14 - 36 U/L) 63 H ALT (9 - 52 U/L) 45 Alkaline Phosphatase (<127 U/L) 405 H Total Protein (6.3 - 8.2 g/dL) 6.3 Albumin (3.5 - 5.0 g/dL) 3.1 L Total Beta HCG (NEGATIVE) NEGATIVE Cancelled Coagulation PT (9.4 - 12.5 SEC) 13.8 H INR (0.90 - 1.19) 1.26 H Hematology CBC w Diff NO MAN DIFF REQ WBC (4.8 - 10.8 /CUMM) 8.2 RBC (4.20 - 5.40 /CUMM) 3.82 L Hgb (12.0 - 16.0 G/DL) 9.3 L Hct (37 - 47 %) 28.0 L MCV (81.0 - 99.0 FL) 73.5 L MCH (27.0 - 31.0 PG) 24.4 L MCHC (33.0 - 37.0 G/DL) 33.2 RDW (11.5 - 14.5 %) 16.0 H Plt Count (130 - 400 /CUMM) 404 H MPV (7.4 - 10.4 FL) 8.9 Gran % (42.2 - 75.2 %) 85.1 H Lymphocytes % (20.5 - 51.1 %) 8.6 L Monocytes % (1.7 - 9.3 %) 5.3 Eosinophils % (0 - 5 %) 0.9 Basophils % (0.0 - 2.0 %) 0.1 Absolute Granulocytes (1.4 - 6.5 /CUMM) 7.0 H Absolute Lymphocytes (1.2 - 3.4 /CUMM) 0.7 L Absolute Monocytes (0.10 - 0.60 /CUMM) 0.4 Absolute Eosinophils (0.0 - 0.7 /CUMM) 0.1 Absolute Basophils (0.0 - 0.2 /CUMM) 0 /17 0726 Chemistry Sodium (137 - 145 mmol/L) 137 Potassium (3.5 - 5.1 mmol/L) 4.2 Chloride (98 - 107 mmol/L) 105 Carbon Dioxide (22 - 30 mmol/L) 23 Anion Gap (5 - 16) 9 BUN (7 - 17 mg/dL) 11 Creatinine (0.5 - 1.0 mg/dL) 0.6 Estimated GFR (>60 ml/min) > 60 BUN/Creatinine Ratio (7 - 25 %) 18.3 Total Bilirubin (0.2 - 1.3 mg/dL) 3.1 H Direct Bilirubin (< 0.4 mg/dL) 1.9 H AST (14 - 36 U/L) 113 H ALT (9 - 52 U/L) 70 H Alkaline Phosphatase (<127 U/L) 426 H Total Protein (6.3 - 8.2 g/dL) 6.6 Albumin (3.5 - 5.0 g/dL) 3.2 L Coagulation PT (9.4 - 12.5 SEC) 15.4 H INR (0.90 - 1.19) 1.41 H Hematology CBC w Diff MAN DIFF ORDERED WBC (4.8 - 10.8 /CUMM) 22.4 H RBC (4.20 - 5.40 /CUMM) 4.07 L Hgb (12.0 - 16.0 G/DL) 9.9 L Hct (37 - 47 %) 30.3 L MCV (81.0 - 99.0 FL) 74.4 L MCH (27.0 - 31.0 PG) 24.3 L MCHC (33.0 - 37.0 G/DL) 32.7 L RDW (11.5 - 14.5 %) 16.5 H Plt Count (130 - 400 /CUMM) 425 H MPV (7.4 - 10.4 FL) 9.0 Gran % (42.2 - 75.2 %) 95.3 H Lymphocytes % (20.5 - 51.1 %) 2.5 L Monocytes % (1.7 - 9.3 %) 2.1 Eosinophils % (0 - 5 %) 0.1 Basophils % (0.0 - 2.0 %) 0 Absolute Granulocytes (1.4 - 6.5 /CUMM) 21.3 H Segmented Neutrophils (42.2 - 75.2 %) 85 H Band Neutrophils (0.0 - 5.0 %) 8 H Absolute Lymphocytes (1.2 - 3.4 /CUMM) 0.6 L Lymphocytes (20.5 - 51.1 %) 4 L Monocytes (1.7 - 9.3 %) 3 Absolute Monocytes (0.10 - 0.60 /CUMM) 0.5 Absolute Eosinophils (0.0 - 0.7 /CUMM) 0 Absolute Basophils (0.0 - 0.2 /CUMM) 0 Platelet Estimate (ADEQUATE) INCREASED Hypochromic-Microcytic 1+ Anisocytosis 1+ Microcytic Cells 1+ Assessment/Plan Assessment/Plan Postop day #0 status post Laparoscopic utility gastrotomy for ERCP, Laparoscopic lysis of adhesion, Laparoscopic cholecystectomy for choledocholithiasis Perioperative antibiotics. Patient required adjustments to pain medication Encourage out of bed, ambulate Continue IV fluids Continue clears Follow a.m. labs including LFTs Heparin subcu for DVT prophylaxis ALPS for DVT prophylaxis (patient refusing) Regular home meds Core Measures Venous Thromboembolism VTE Risk Factors Obesity No Mechanical VTE Prophylaxis d/t N/A MechProphylax Ordered No VTE Pharm Prophylaxis d/t NA PharmProphylax ordered
[2018-05-16 22:15] VITALS: BP 132/86
[2018-05-17 06:47] VITALS: BP 96/80
[2018-05-17] MEDS ORDERED: PERCOCET 5-3251 EACH PO (07:29)
--- NOTE | 2018-05-17 07:35 | Patient Discharge Instructions ---
Discharge Instructions General Discharge Information You had these procedures: laparoscopic cholecystectomy with intraoperative ERCP Watch for these problems: fever>101, worsening pain despite pain meds, inability to pass flatus/bm, inability to tolerate food/drink, redness/drainage from incisions Other wound care: keep wounds clean and dry. 48hr from surgery, may take off outer dressings and shower. Do not soak wounds- no tub baths/swimming. Diet Recommended Diet: Low Fat Activity Activity Self Limited: Yes Additional ACTIVITY Info: Activity as tolerated Acute Coronary Syndrome Inclusion Criteria At DC or during hospital stay patient has or had the following: ACS DIAGNOSIS No Discharge Core Measures Meds if any: Prescribed or Continued at Discharge Meds if any: NOT Prescribed or Continued at Discharge Congestive Heart Failure Inclusion Criteria At DC or during hospital stay patient has or had the following: CHF DIAGNOSIS No Discharge Core Measures Meds if any: Prescribed or Continued at Discharge Meds if any: NOT Prescribed or Continued at Discharge Cerebrovascular accident Inclusion Criteria At DC or during hospital stay patient has or had the following: CVA/TIA Diagnosis No Discharge Core Measures Meds if any: Prescribed or Continued at Discharge Meds if any: NOT Prescribed or Continued at Discharge Venous thromboembolism Inclusion Criteria VTE Diagnosis No VTE Type NONE VTE Confirmed by (Test) NONE Discharge Core Measures - Per Current guidelines, there needs to be overlap - treatment for the first 5 days of Warfarin therapy. - If discharged on Warfarin prior to 5 days of - overlap therapy, the patient will need to be - assessed for post discharge needs including - *Post discharge parental anticoagulation - *Warfarin and/or parental anticoagulation education - *Follow up date to check INR post discharge At least 5 days overlap therapy as Inpatient No Meds if any: Prescribed or Continued at Discharge Note: Overlap Therapy is Warfarin and Anticoagulant Meds if any: NOT Prescribed or Continued at Discharge
--- NOTE | 2018-05-17 07:36 | PN- Student ---
Vashti Matthews 05/17/18 07: Subjective Subjective: Pt reporting 10/10 pain throughout the night and this morning. Has been taking dilaudid which she reports gives her relief and percocet. Tolerated a clear liquid diet last night without nausea or vomiting. Reports being hungry and having a good appetite. Had flatus last night. Voiding without difficulty. Ambulated last night which relieved some of her pain. No CP, SOB, dizziness, DAVIS. Objective Objective: Vitals: See EMR General: Middle aged woman, sitting up in bed, appears comfortable, NAD. Cardio: Regular rate and rhythm. S1 and S2. No murmurs rubs or gallops. Pulm: Clear breath sounds anteriorly and laterally with no wheezes, rhonchi or rales. Abdomen: Soft, obese, non-distended. Normoactive bowel sounds. Incisions clean, dry and intact. Periumbilical dressing with scant amount of blood. Non-tender to palpation. Extremities: Calves are soft and non-tender bilaterally. Results Results: Laboratory Tests 05/17/18 0705: Sodium Pending, Potassium Pending, Chloride Pending, Carbon Dioxide Pending, Anion Gap Pending, BUN Pending, Creatinine Pending, BUN/Creatinine Ratio Pending , Total Bilirubin Pending, Direct Bilirubin Pending, AST Pending, ALT Pending, Alkaline Phosphatase Pending, Total Protein Pending, Albumin Pending, CBC w Diff Pending, WBC Pending, RBC Pending, Hgb Pending, Hct Pending, MCV Pending, MCH Pending, MCHC Pending, RDW Pending, Plt Count Pending, MPV Pending 05/16/18 0648: Anion Gap 10, Estimated GFR > 60, BUN/Creatinine Ratio 16.7, Total Bilirubin 1.7 H, Direct Bilirubin 0.8 H, AST 63 H, ALT 45, Alkaline Phosphatase 405 H, Total Protein 6.3, Albumin 3.1 L, Total Beta HCG NEGATIVE, PT 13.8 H, INR 1.26 H, CBC w Diff NO MAN DIFF REQ, RBC 3.82 L, MCV 73.5 L, MCH 24.4 L, MCHC 33.2 , RDW 16.0 H, MPV 8.9, Gran % 85.1 H, Lymphocytes % 8.6 L, Monocytes % 5.3, Eosinophils % 0.9, Basophils % 0.1, Absolute Granulocytes 7.0 H, Absolute Lymphocytes 0.7 L, Absolute Monocytes 0.4, Absolute Eosinophils 0.1, Absolute Basophils 0 05/16/18 0500: Urine Test Cancelled 05/15/18 1506: Total Beta HCG Cancelled 05/15/18 0726: Anion Gap 9, Estimated GFR > 60, BUN/Creatinine Ratio 18.3, Total Bilirubin 3.1 H, Direct Bilirubin 1.9 H, AST 113 H, ALT 70 H, Alkaline Phosphatase 426 H, Total Protein 6.6, Albumin 3.2 L, PT 15.4 H, INR 1.41 H, CBC w Diff MAN DIFF ORDERED, RBC 4.07 L, MCV 74.4 L, MCH 24.3 L, MCHC 32.7 L, RDW 16.5 H, MPV 9.0, Gran % 95.3 H, Lymphocytes % 2.5 L, Monocytes % 2.1, Eosinophils % 0.1, Basophils % 0, Absolute Granulocytes 21.3 H, Segmented Neutrophils 85 H, Band Neutrophils 8 H, Absolute Lymphocytes 0.6 L, Lymphocytes 4 L, Monocytes 3, Absolute Monocytes 0.5, Absolute Eosinophils 0, Absolute Basophils 0, Platelet Estimate INCREASED, Hypochromic-Microcytic 1+, Anisocytosis 1+, Microcytic Cells 1+ 05/14/18 1702: Total Bilirubin Cancelled, Direct Bilirubin Cancelled, AST Cancelled, ALT Cancelled, Alkaline Phosphatase Cancelled, Total Protein Cancelled, Albumin Cancelled 05/14/18 1659: Total Bilirubin Cancelled, Direct Bilirubin Cancelled, AST Cancelled, ALT Cancelled, Alkaline Phosphatase Cancelled, Total Protein Cancelled, Albumin Cancelled 05/14/18 1355: Anion Gap 15, Estimated GFR > 60, BUN/Creatinine Ratio 21.4, Glucose 117 H, Calcium 9.6, Total Bilirubin 1.8 H, Direct Bilirubin 1.1 H, AST 170 H, ALT 69 H, Alkaline Phosphatase 607 H, Troponin I < 0.01, C-Reactive Prot, Quant 0.6, Total Protein 7.6, Albumin 3.9, Globulin 3.7, Albumin/Globulin Ratio 1.1, Lipase 121, CBC w Diff MAN DIFF ORDERED, RBC 4.76, MCV 74.8 L, MCH 24.2 L, MCHC 32.4 L, RDW 16.2 H, MPV 8.0, Gran % 97.4 H, Lymphocytes % 1.9 L, Monocytes % 0.7 L, Eosinophils % 0, Basophils % 0, Absolute Granulocytes 28.4 H, Segmented Neutrophils 86 H, Band Neutrophils 10 H, Absolute Lymphocytes 0.6 L, Lymphocytes 2 L, Monocytes 2, Absolute Monocytes 0.2, Absolute Eosinophils 0, Absolute Basophils 0, Platelet Estimate VERIFIED BY SMEAR, Hypochromic- Microcytic 1+, Anisocytosis 1+, Microcytic Cells 1+ 05/14/18 1320: Urine Color Cancelled, Urine Clarity Cancelled, Urine pH Cancelled, Ur Specific [place] Cancelled, Urine Protein Cancelled, Urine Ketones Cancelled, Urine Nitrite Cancelled, Urine Bilirubin Cancelled, Urine Urobilinogen Cancelled, Ur Leukocyte Esterase Cancelled, Ur Microscopic Cancelled, Urine Hemoglobin Cancelled, Urine Glucose Cancelled Assessment/Plan Assessment: 52 year old female POD#1 s/p laparoscopic cholecystectomy and laparoscopic assisted ERCP for cholecystitis and choledocolithiasis. Pt reports 10/10 pain but appears comfortable, vital signs are stable and abdomen is non-tender to palpation. Tolerating diet and doing well post-operatively. Plan: Continue with pain control as needed. Pt advised to avoid IV pain meds if pain is well controlled. Start simethicone for relief of gas pain. Advance diet to low fat diet. D/C IVF. Antibiotic course was completed. Hep SQ, ALPs and ambulation for DVT ppx. Home meds continued. Discuss with Dr Howard and surgical PAs. Continue with d/c planning. Sridevi Rivera 05/17/18 0804: Objective Results Results: Laboratory Tests 05/17/18 0705: Sodium Pending, Potassium Pending, Chloride Pending, Carbon Dioxide Pending, Anion Gap Pending, BUN Pending, Creatinine Pending, BUN/Creatinine Ratio Pending , Total Bilirubin Pending, Direct Bilirubin Pending, AST Pending, ALT Pending, Alkaline Phosphatase Pending, Total Protein Pending, Albumin Pending, CBC w Diff Pending, WBC Pending, RBC Pending, Hgb Pending, Hct Pending, MCV Pending, MCH Pending, MCHC Pending, RDW Pending, Plt Count Pending, MPV Pending 05/16/18 0648: Anion Gap 10, Estimated GFR > 60, BUN/Creatinine Ratio 16.7, Total Bilirubin 1.7 H, Direct Bilirubin 0.8 H, AST 63 H, ALT 45, Alkaline Phosphatase 405 H, Total Protein 6.3, Albumin 3.1 L, Total Beta HCG NEGATIVE, PT 13.8 H, INR 1.26 H, CBC w Diff NO MAN DIFF REQ, RBC 3.82 L, MCV 73.5 L, MCH 24.4 L, MCHC 33.2 , RDW 16.0 H, MPV 8.9, Gran % 85.1 H, Lymphocytes % 8.6 L, Monocytes % 5.3, Eosinophils % 0.9, Basophils % 0.1, Absolute Granulocytes 7.0 H, Absolute Lymphocytes 0.7 L, Absolute Monocytes 0.4, Absolute Eosinophils 0.1, Absolute Basophils 0 05/16/18 0500: Urine Test Cancelled 05/15/18 1506: Total Beta HCG Cancelled 05/15/18 0726: Anion Gap 9, Estimated GFR > 60, BUN/Creatinine Ratio 18.3, Total Bilirubin 3.1 H, Direct Bilirubin 1.9 H, AST 113 H, ALT 70 H, Alkaline Phosphatase 426 H, Total Protein 6.6, Albumin 3.2 L, PT 15.4 H, INR 1.41 H, CBC w Diff MAN DIFF ORDERED, RBC 4.07 L, MCV 74.4 L, MCH 24.3 L, MCHC 32.7 L, RDW 16.5 H, MPV 9.0, Gran % 95.3 H, Lymphocytes % 2.5 L, Monocytes % 2.1, Eosinophils % 0.1, Basophils % 0, Absolute Granulocytes 21.3 H, Segmented Neutrophils 85 H, Band Neutrophils 8 H, Absolute Lymphocytes 0.6 L, Lymphocytes 4 L, Monocytes 3, Absolute Monocytes 0.5, Absolute Eosinophils 0, Absolute Basophils 0, Platelet Estimate INCREASED, Hypochromic-Microcytic 1+, Anisocytosis 1+, Microcytic Cells 1+ 05/14/18 1702: Total Bilirubin Cancelled, Direct Bilirubin Cancelled, AST Cancelled, ALT Cancelled, Alkaline Phosphatase Cancelled, Total Protein Cancelled, Albumin Cancelled 05/14/18 1659: Total Bilirubin Cancelled, Direct Bilirubin Cancelled, AST Cancelled, ALT Cancelled, Alkaline Phosphatase Cancelled, Total Protein Cancelled, Albumin Cancelled 05/14/18 1355: Anion Gap 15, Estimated GFR > 60, BUN/Creatinine Ratio 21.4, Glucose 117 H, Calcium 9.6, Total Bilirubin 1.8 H, Direct Bilirubin 1.1 H, AST 170 H, ALT 69 H, Alkaline Phosphatase 607 H, Troponin I < 0.01, C-Reactive Prot, Quant 0.6, Total Protein 7.6, Albumin 3.9, Globulin 3.7, Albumin/Globulin Ratio 1.1, Lipase 121, CBC w Diff MAN DIFF ORDERED, RBC 4.76, MCV 74.8 L, MCH 24.2 L, MCHC 32.4 L, RDW 16.2 H, MPV 8.0, Gran % 97.4 H, Lymphocytes % 1.9 L, Monocytes % 0.7 L, Eosinophils % 0, Basophils % 0, Absolute Granulocytes 28.4 H, Segmented Neutrophils 86 H, Band Neutrophils 10 H, Absolute Lymphocytes 0.6 L, Lymphocytes 2 L, Monocytes 2, Absolute Monocytes 0.2, Absolute Eosinophils 0, Absolute Basophils 0, Platelet Estimate VERIFIED BY SMEAR, Hypochromic- Microcytic 1+, Anisocytosis 1+, Microcytic Cells 1+ 05/14/18 1320: Urine Color Cancelled, Urine Clarity Cancelled, Urine pH Cancelled, Ur Specific [place] Cancelled, Urine Protein Cancelled, Urine Ketones Cancelled, Urine Nitrite Cancelled, Urine Bilirubin Cancelled, Urine Urobilinogen Cancelled, Ur Leukocyte Esterase Cancelled, Ur Microscopic Cancelled, Urine Hemoglobin Cancelled, Urine Glucose Cancelled Assessment/Plan Plan: POD1, reports pain though comfortable and VSS, likely gas pain. +oob, +flatus. "starving". Try LF diet, abx done, fu labs, ms planning. PO pain meds encouraged. erasto Howard
--- NOTE | 2018-05-17 08:36 | Surgical Discharge Summary ---
Visit Information Visit Dates Admission Date: 05/14/18 Discharge Date: 05/17/18 History of Present Illness Chief Complaint: abdominal pain Medical History Blood Transfusion Hx: Yes Respiratory: bronchitis Gastrointestinal: NONE (gastric bypass), GERD, GALL STONES Musculoskeletal: chronic back pain, osteoarthritis History of MRSA: No History of VRE: No History of CDIFF: No Isolation History: Standard Influenza Vaccine: 05/15/17 Surgical History Pertinent Surgical History: brody-en-y gastric bypass Psychosocial History Where Do You Live? Home Who Do You Live With? Spouse Services at Home: None What is Your Primary Language? Turkmen ETOH Use: denies use Review of Systems: see H&P Hospital Course Course Attending Physician: Augie Howard DO Primary Care Physician: Marlon SESAY,Michael Navarro Hospital Course: Admitted through ED on 05/14/18 with choledocholithiasis. Hx of brody-en-y gastric bypass many years ago. On 05/16/18 underwent laparoscopic cholecystectomy by Dr. Howard with intraoperative ERCP by GI. Pt toelrated procedures well. Postoperatively, recovered on med/surg floor. At time of dc, Postop abx completed, pain controlled w po pain meds, +oob ambulating, tolerating LF diet and voiding spontaneously. LFTs have normalized and labs have been reviewed by GI. Allergies: Coded Allergies: metronidazole (From FLAGYL) (Mild, ITCHING 05/16/18) Significant Procedures: 05/16/18: Lap cholecystectomy (Anita) with intraop ERCP (GI) Disposition Summary Disposition Principal Diagnosis: choledocholithiasis Additional Diagnosis: history of brody-en-y gastric bypass Discharge Disposition: home or self care Discharge Instructions General Discharge Information Code Status: Full Code Patient's Diet: low fat diet Patient's Activity: as tolerated Follow-Up Instructions/Appts: Call to be seen in 2 weeks Medications at Discharge Discharge Medications: Start taking the following new medications: Oxycodone HCl (Oxycodone HCl) 5 MG TABLET 1-2 Tablet ORAL Q4H as needed for POSTOP PAIN Qty = 20 No Refills Copies To: Karlo SESAY,Farshad Michelle
[2018-05-17 10:41] LABS: ABSOLUTE BASOPHIL COUNT 0 /CUMM (0.0-0.2); ABSOLUTE EOSINOPHIL COUNT 0 /CUMM (0.0-0.7); ABSOLUTE LYMPH COUNT 1.1 /CUMM (1.2-3.4); ABSOLUTE MONOCYTE COUNT 0.7 /CUMM (0.10-0.60); BASOPHIL % 0.1 % (0.0-2.0); EOSINOPHIL % 0 % (0-5); HEMATOCRIT 28.9 % (37-47); MEAN CORPUSCULAR HGB 23.9 PG (27.0-31.0); MEAN CORPUSCULAR HGB CONC 32.2 G/DL (33.0-37.0); MEAN CORPUSCULAR VOLUME 74.3 FL (81.0-99.0); MEAN PLATELET VOLUME 8.7 FL (7.4-10.4); PLATELET COUNT 446 /CUMM (130-400); RBC DISTRIBUTION WIDTH 16.1 % (11.5-14.5); RED BLOOD CELL CT 3.89 /CUMM (4.20-5.40)
[2018-05-17] MEDS ORDERED: OXYCODONE HCL5 M1 PO (11:29)
[2018-05-17 11:36] LABS: GRANULOCYTE % 87.3 % (42.2-75.2); WHITE BLOOD CELL COUNT 13.8 /CUMM (4.8-10.8)
--- NOTE | 2018-05-17 12:00 | PN- Gastroenterology ---
Assessment/Plan GI Assessment/Recommendations: This is a 52-year-old female, 20 years status post gastric bypass. Had an intraoperative ERCP yesterday with removal of 5 stones from CBD and a sphincterotomy. Also had a cholecystectomy. Feels well this morning. Some mild tenderness at site of incisions. No fever, chills or nausea. Had a light breakfast this AM. Abdo soft. No rebounds. BS present. LFTs improving. Agree with patient DC from the perspective of biliary obstruction. To follow with Dr. Domenic Dietrich in 1-2 weeks. Subjective Subjective: x Objective Vital Signs and I&Os Vital Signs Date Time Temp Pulse Resp B/P B/P Pulse O2 O2 Flow FiO2 Mean Ox Delivery Rate 05/17 0647 97.7 67 20 96/80 95 Room Air 05/16 2215 98.8 92 18 132/86 96 Room Air 05/16 1800 98.3 71 18 122/80 96 Room Air Intake & Output 05/17 1600 05/17 0400 05/16 1600 05/16 0400 05/15 1600 05/15 0400 Intake Total 920 600 400 650 800 0 Output Total 350 350 Balance 570 250 400 650 800 0 Intake, IV 800 400 400 410 800 Intake, Oral 120 200 240 0 0 Number 0 Bowel Movements Output, Urine 350 350 Patient 249 lb 243 lb Weight Results Pertinent Lab Results: x Laboratory Tests 05/17 05/16 0705 0648 Chemistry Sodium (137 - 145 mmol/L) 137 139 Potassium (3.5 - 5.1 mmol/L) 3.7 3.9 Chloride (98 - 107 mmol/L) 107 108 H Carbon Dioxide (22 - 30 mmol/L) 22 22 Anion Gap (5 - 16) 8 10 BUN (7 - 17 mg/dL) 10 10 Creatinine (0.5 - 1.0 mg/dL) 0.6 0.6 Estimated GFR (>60 ml/min) > 60 > 60 BUN/Creatinine Ratio (7 - 25 %) 16.7 16.7 Total Bilirubin (0.2 - 1.3 mg/dL) 0.8 1.7 H Direct Bilirubin (< 0.4 mg/dL) 0.4 0.8 H AST (14 - 36 U/L) 38 H 63 H ALT (9 - 52 U/L) 46 45 Alkaline Phosphatase (<127 U/L) 348 H 405 H Total Protein (6.3 - 8.2 g/dL) 6.4 6.3 Albumin (3.5 - 5.0 g/dL) 3.0 L 3.1 L Total Beta HCG (NEGATIVE) NEGATIVE Coagulation PT (9.4 - 12.5 SEC) 13.8 H INR (0.90 - 1.19) 1.26 H Hematology CBC w Diff NO MAN DIFF REQ NO MAN DIFF REQ WBC (4.8 - 10.8 /CUMM) 13.8 H 8.2 RBC (4.20 - 5.40 /CUMM) 3.89 L 3.82 L Hgb (12.0 - 16.0 G/DL) 9.3 L 9.3 L Hct (37 - 47 %) 28.9 L 28.0 L MCV (81.0 - 99.0 FL) 74.3 L 73.5 L MCH (27.0 - 31.0 PG) 23.9 L 24.4 L MCHC (33.0 - 37.0 G/DL) 32.2 L 33.2 RDW (11.5 - 14.5 %) 16.1 H 16.0 H Plt Count (130 - 400 /CUMM) 446 H 404 H MPV (7.4 - 10.4 FL) 8.7 8.9 Gran % (42.2 - 75.2 %) 87.3 H 85.1 H Lymphocytes % (20.5 - 51.1 %) 7.8 L 8.6 L Monocytes % (1.7 - 9.3 %) 4.8 5.3 Eosinophils % (0 - 5 %) 0 0.9 Basophils % (0.0 - 2.0 %) 0.1 0.1 Absolute Granulocytes (1.4 - 6.5 /CUMM) 12.0 H 7.0 H Absolute Lymphocytes (1.2 - 3.4 /CUMM) 1.1 L 0.7 L Absolute Monocytes (0.10 - 0.60 /CUMM) 0.7 H 0.4 Absolute Eosinophils (0.0 - 0.7 /CUMM) 0 0.1 Absolute Basophils (0.0 - 0.2 /CUMM) 0 0 05/16 05/15 0500 1506 Chemistry Total Beta HCG Cancelled Urines Urine Test Cancelled 05/15 05/14 0726 1702 Chemistry Sodium (137 - 145 mmol/L) 137 Potassium (3.5 - 5.1 mmol/L) 4.2 Chloride (98 - 107 mmol/L) 105 Carbon Dioxide (22 - 30 mmol/L) 23 Anion Gap (5 - 16) 9 BUN (7 - 17 mg/dL) 11 Creatinine (0.5 - 1.0 mg/dL) 0.6 Estimated GFR (>60 ml/min) > 60 BUN/Creatinine Ratio (7 - 25 %) 18.3 Total Bilirubin (0.2 - 1.3 mg/dL) 3.1 H Cancelled Direct Bilirubin (< 0.4 mg/dL) 1.9 H Cancelled AST (14 - 36 U/L) 113 H Cancelled ALT (9 - 52 U/L) 70 H Cancelled Alkaline Phosphatase (<127 U/L) 426 H Cancelled Total Protein (6.3 - 8.2 g/dL) 6.6 Cancelled Albumin (3.5 - 5.0 g/dL) 3.2 L Cancelled Coagulation PT (9.4 - 12.5 SEC) 15.4 H INR (0.90 - 1.19) 1.41 H Hematology CBC w Diff MAN DIFF ORDERED WBC (4.8 - 10.8 /CUMM) 22.4 H RBC (4.20 - 5.40 /CUMM) 4.07 L Hgb (12.0 - 16.0 G/DL) 9.9 L Hct (37 - 47 %) 30.3 L MCV (81.0 - 99.0 FL) 74.4 L MCH (27.0 - 31.0 PG) 24.3 L MCHC (33.0 - 37.0 G/DL) 32.7 L RDW (11.5 - 14.5 %) 16.5 H Plt Count (130 - 400 /CUMM) 425 H MPV (7.4 - 10.4 FL) 9.0 Gran % (42.2 - 75.2 %) 95.3 H Lymphocytes % (20.5 - 51.1 %) 2.5 L Monocytes % (1.7 - 9.3 %) 2.1 Eosinophils % (0 - 5 %) 0.1 Basophils % (0.0 - 2.0 %) 0 Absolute Granulocytes (1.4 - 6.5 /CUMM) 21.3 H Segmented Neutrophils (42.2 - 75.2 %) 85 H Band Neutrophils (0.0 - 5.0 %) 8 H Absolute Lymphocytes (1.2 - 3.4 /CUMM) 0.6 L Lymphocytes (20.5 - 51.1 %) 4 L Monocytes (1.7 - 9.3 %) 3 Absolute Monocytes (0.10 - 0.60 /CUMM) 0.5 Absolute Eosinophils (0.0 - 0.7 /CUMM) 0 Absolute Basophils (0.0 - 0.2 /CUMM) 0 Platelet Estimate (ADEQUATE) INCREASED Hypochromic-Microcytic 1+ Anisocytosis 1+ Microcytic Cells 1+ 05/14 05/14 1659 1355 Chemistry Sodium (137 - 145 mmol/L) 142 Potassium (3.5 - 5.1 mmol/L) 3.6 Chloride (98 - 107 mmol/L) 104 Carbon Dioxide (22 - 30 mmol/L) 24 Anion Gap (5 - 16) 15 BUN (7 - 17 mg/dL) 15 Creatinine (0.5 - 1.0 mg/dL) 0.7 Estimated GFR (>60 ml/min) > 60 BUN/Creatinine Ratio (7 - 25 %) 21.4 Glucose (65 - 99 mg/dL) 117 H Calcium (8.4 - 10.2 mg/dL) 9.6 Total Bilirubin (0.2 - 1.3 mg/dL) Cancelled 1.8 H Direct Bilirubin (< 0.4 mg/dL) Cancelled 1.1 H AST (14 - 36 U/L) Cancelled 170 H ALT (9 - 52 U/L) Cancelled 69 H Alkaline Phosphatase (<127 U/L) Cancelled 607 H Troponin I (< 0.11 ng/ml) < 0.01 C-Reactive Prot, Quant (<1.0 mg/dL) 0.6 Total Protein (6.3 - 8.2 g/dL) Cancelled 7.6 Albumin (3.5 - 5.0 g/dL) Cancelled 3.9 Globulin (1.9 - 4.2 gm/dL) 3.7 Albumin/Globulin Ratio (1.1 - 2.2 %) 1.1 Lipase (23 - 300 U/L) 121 Hematology CBC w Diff MAN DIFF ORDERED WBC (4.8 - 10.8 /CUMM) 29.2 H RBC (4.20 - 5.40 /CUMM) 4.76 Hgb (12.0 - 16.0 G/DL) 11.5 L Hct (37 - 47 %) 35.6 L MCV (81.0 - 99.0 FL) 74.8 L MCH (27.0 - 31.0 PG) 24.2 L MCHC (33.0 - 37.0 G/DL) 32.4 L RDW (11.5 - 14.5 %) 16.2 H Plt Count (130 - 400 /CUMM) 508 H MPV (7.4 - 10.4 FL) 8.0 Gran % (42.2 - 75.2 %) 97.4 H Lymphocytes % (20.5 - 51.1 %) 1.9 L Monocytes % (1.7 - 9.3 %) 0.7 L Eosinophils % (0 - 5 %) 0 Basophils % (0.0 - 2.0 %) 0 Absolute Granulocytes (1.4 - 6.5 /CUMM) 28.4 H Segmented Neutrophils (42.2 - 75.2 %) 86 H Band Neutrophils (0.0 - 5.0 %) 10 H Absolute Lymphocytes (1.2 - 3.4 /CUMM) 0.6 L Lymphocytes (20.5 - 51.1 %) 2 L Monocytes (1.7 - 9.3 %) 2 Absolute Monocytes (0.10 - 0.60 /CUMM) 0.2 Absolute Eosinophils (0.0 - 0.7 /CUMM) 0 Absolute Basophils (0.0 - 0.2 /CUMM) 0 Platelet Estimate (ADEQUATE) VERIFIED BY SMEAR Hypochromic-Microcytic 1+ Anisocytosis 1+ Microcytic Cells 1+ 05/14 1320 Urines Urine Color Cancelled Urine Clarity Cancelled Urine pH Cancelled Ur Specific [place] Cancelled Urine Protein Cancelled Urine Ketones Cancelled Urine Nitrite Cancelled Urine Bilirubin Cancelled Urine Urobilinogen Cancelled Ur Leukocyte Esterase Cancelled Ur Microscopic Cancelled Urine Hemoglobin Cancelled Urine Glucose Cancelled
== END 2018-05-17 13:06 | DRG 263 ==
LOC: ERH 13:13 → ERHI 16:36 → 2NA 16:36 → ENRESERV 18:05 → ENTRNSPT 18:50 → EDTRNSPT 19:07 → EDTRNSPTSTS 19:07 → 2NA 19:29 → CMPTRNSPT 19:48 → ENTRNSPT 05-16 17:24 → EDTRNSPTSTS 05-16 17:31 → EDTRNSPT 05-16 17:31 → CMPTRNSPT 05-16 18:06 → 2NA 05-17 13:06
PROVIDERS: Physician Assistant; Physician Assistant Medical; Physician Assistant Surgical
PROC: 0FC98ZZ Extirpation of Matter from Common Bile Duct, Via Natural or Artificial Opening Endoscopic (ICD-10-PCS; principal; 2018-05-16)
PROC: 0FT44ZZ Resection of Gallbladder, Percutaneous Endoscopic Approach (ICD-10-PCS; 2018-05-16)
PROC: 0FC78ZZ Extirpation of Matter from Common Hepatic Duct, Via Natural or Artificial Opening Endoscopic (ICD-10-PCS; 2018-05-16)
PROC: 0DNU4ZZ Release Omentum, Percutaneous Endoscopic Approach (ICD-10-PCS; 2018-05-16)
PROC: 3E0T3BZ Introduction of Anesthetic Agent into Peripheral Nerves and Plexi, Percutaneous Approach (ICD-10-PCS; 2018-05-16)
DX: K80.50 Calculus of bile duct without cholangitis or cholecystitis without obstruction (principal); E66.01 Morbid (severe) obesity due to excess calories; Z68.34 Body mass index [BMI] 34.0-34.9, adult; K44.9 Diaphragmatic hernia without obstruction or gangrene; Z98.84 Bariatric surgery status; K21.9 Gastro-esophageal reflux disease without esophagitis; D64.9 Anemia, unspecified; M54.5 Low back pain
CPT/HCPCS: 2NASP; 36592; 74177; 81025; 82436; 86902; 86920; 86922; 93005; 93010; 96365; 96375; J0131; J0690; J0696; J1200; J1644; J1885; J2405; J2550; J3490; J7042; Q2036